=== PATIENT | female | born 1965 | race Caucasian/White ===

== ENCOUNTER 2017-06-16 09:33 | Day surgery (SDC) | payer BC ==
[2016-07-02 07:19] VITALS: BMI 26.2
[2017-06-16] MEDS ORDERED: Propofol 10 mg/ml Inj (20 ML) ONE (10:08)
[2017-06-16] MEDS ORDERED: Midazolam 2 MG/2 ML VIAL ONE (10:09)
[2017-06-16] MEDS: Lidocaine/Epinephrine 1% 1:100000 10 ML IJ ONE ×3 (10:31→11:03)
[2017-06-16] MEDS: Bupivacaine HCl 0.25% PF (10 ml) Inj ONE ×3 (10:31→11:03)
[2017-06-16] MEDS: ceFAZolin IV 2 gm in Dextrose 2 GM/50 ML BAG IVPB ONE ×2 (10:32→10:50)
[2017-06-16] MEDS ORDERED: Oxycodone/Acetaminophen 5/325 mg Tab PO ONE (11:55)
--- NOTE | 2017-06-16 11:59 | PCM.SURG1 ---
Surgeon's Initial Post Op Note - Surgeon's Notes Surgeon: Dr. Dickinson Car Mechanic Helper: Batsheva HOLLIS Pre-Operative Diagnosis: Sebaceous cyst on back Operative Findings: see op note Post-Operative Diagnosis: as above Operation Performed: excision of sebaceous cyst on back- left Specimen/Specimens Removed: sebaceous cyst Estimated Blood Loss: EBL {In ML}: 3 Drains Used: No Drains Post-Op Condition: Good Date of Surgery/Procedure: 06/16/17 Time of Surgery/Procedure: 11:59
[2017-06-16 13:34] VITALS: RESP 16; TEMP 97.1
[2017-06-16 15:59] VITALS: BP 107/66; PULSE 76; O2SAT 100
--- NOTE | 2017-06-17 09:43 | OP ---
PROCEDURE DATE: 06/16/2017 PREOPERATIVE DIAGNOSIS: Sebaceous cyst of back, approximately 3 x 4 cm in size. POSTOPERATIVE DIAGNOSIS: Sebaceous cyst of back, approximately 3 x 4 cm in size. PROCEDURES: 1. Excision of sebaceous cyst of the of the 3 x 4 cm size. 2. Layered closure of the wound, 4 x 3 cm size. TYPE OF ANESTHESIA: Local anesthesia plus sedation. ESTIMATED BLOOD LOSS: Around 10 mL. DRAIN: None. PATHOLOGY: The sebaceous cyst was sent for Pathology. COMPLICATIONS: None. INTRAOPERATIVE FINDINGS: The patient had approximately 3 x 4 cm irregular shaped sebaceous cyst of the mid back. DESCRIPTION OF PROCEDURE: On intraoperative steps, this 51-year-old female was diagnosed with a sebaceous cyst of the mid back and the patient was consented for the excision and brought to the OR, placed supine on the operating table. After induction of the anesthesia, the patient was placed in right lateral position. The back was prepped and draped and the local anesthesia was injected. Elliptical 4 x 2 cm incision was made after anesthetizing the skin and subcutaneous tissue. Upper and lower flap was created and sebaceous cyst was completely excised after superior, inferior, medial, and lateral dissection and the cyst was sent off of the table for the Pathology. Hemostasis was achieved. The wound was irrigated and now the upper and lower flap was sutured to the underlying fascia and subcu, another layer of deep subcu with pressure, another layer of subcu with 3-0 Vicryl, and another layer of the skin with 4-0 Monocryl, and dry sterile dressing was applied. The patient tolerated the procedure well. Count of the instrument and gauze was correct. There was no apparent complication. The patient was reversed from sedation in the OR, sent to the Postanesthesia Care Unit in stable condition. Nicholas Dickinson MD
== END 2017-06-16 14:00 | disposition home or self-care (01) ==
LOC: C.SDS 09:33
PROVIDERS: ATTEND Surgery Surgical Critical Care
DX: L72.3 Sebaceous cyst (principal); L72.0 Epidermal cyst
CPT/HCPCS: 11404; 88304; J0690; J2250; J2704; J3010